=== PATIENT | female | born 1935 | race Caucasian/White ===

== ENCOUNTER 2016-04-24 08:26 | Outpatient (CLI) ==
--- NOTE | 2016-04-24 09:03 | DI ---
EXAM: CHEST FRONTAL AND LATERAL VIEWS HISTORY: Followup medial right basilar opacity. COMPARISON: 03/29/2016. FINDINGS: The oval shaped right-sided retrocardiac opacity is again noted, less distinct. This is not clearly identified on the lateral projection. Etiology and clinical significance uncertain. Mild hyperinflation. Lungs are otherwise unremarkable. Stable upper limit normal heart size and aortic atherosclerosis. IMPRESSION: Indeterminate right sided retrocardiac opacity. Consider correlation with CT.
== END 2016-04-24 08:27 | disposition home or self-care (01) ==
LOC: RAD 08:26
PROVIDERS: ATTEND General Practice
DX: R93.8 Abnormal findings on diagnostic imaging of other specified body structures (principal); E11.40 Type 2 diabetes mellitus with diabetic neuropathy, unspecified; E03.9 Hypothyroidism, unspecified; I10 Essential (primary) hypertension; N18.3 Chronic kidney disease, stage 3 (moderate)
CPT/HCPCS: 36415; 80069; 83036; 85025

== ENCOUNTER 2016-04-24 09:11 | Outpatient (CLI) ==
[2016-04-24 13:05] LABS: BASOPHILS % (AUTO) 0.5 % (0.0-3.0); EOSINOPHILS # (AUTO) 0.1 K/ul (0.0-0.7); EOSINOPHILS % (AUTO) 1.9 % (0.0-7.0); HEMATOCRIT 38.1 % (37.0-47.0); IMMATURE GRANULOCYTE % (AUTO) 0.5 % (0.0-5.0); MEAN CORPUSCULAR HEMOGLOBIN 30.8 pg (27.0-31.0); MEAN CORPUSCULAR HGB CONC 31.5 (31.8-35.4); MEAN CORPUSCULAR VOLUME 97.9 fl (81.0-99.0); MONOCYTES # (AUTO) 0.4 K/uL (0.4-2.0); MONOCYTES % (AUTO) 6.6 (0-10); NEUTROPHILS # (AUTO) 3.6 K/ul (2.0-6.9); NEUTROPHILS % (AUTO) 58.5; PLATELET COUNT 241 10^3/uL (140-440); RED BLOOD COUNT 3.89 10^6/ul (4.20-5.40); WHITE BLOOD COUNT 6.18 K/ul (4.6-10.2)
[2016-04-24 13:26] LABS: ALBUMIN 3.7 g/dL (3.4-5.0); ANION GAP 13.2; BUN/CREATININE RATIO 16.07; CALCIUM 9.8 mg/dL (8.2-10.2); CREATININE 1.12 mg/dL (0.60-1.30); PHOSPHORUS 4.1 mg/dL (2.8-4.1); POTASSIUM 4.2 mmol/L (3.5-5.10)
== END 2016-04-24 09:12 | disposition home or self-care (01) ==
LOC: LAB 09:11
PROVIDERS: ATTEND General Practice
DX: E11.40 Type 2 diabetes mellitus with diabetic neuropathy, unspecified (principal); E03.9 Hypothyroidism, unspecified; I10 Essential (primary) hypertension; N18.3 Chronic kidney disease, stage 3 (moderate)
CPT/HCPCS: 36415; 80069; 83036; 85025

== ENCOUNTER 2016-05-02 09:17 | Outpatient (CLI) ==
--- NOTE | 2016-05-02 10:06 | CT ---
EXAM: CT THORAX HISTORY: Abnormal chest radiograph suggesting abnormal mediastinal contour of the lower aspect. TECHNIQUE: CT thorax without intravenous contrast. 5-mm axial sections. Coronal and sagittal re-fo rmations. COMPARISON: None FINDINGS: Heart size is normal. Trace pericardial effusion. Mild atherosclerotic disease of the aorta. No a neurysmal caliber of the aorta is seen. No obvious mediastinal or hilar lymphadenopathy within limi ts of this unenhanced exam. There is diffuse air distension of the esophagus and a small para esoph ageal hernia. These latter findings likely represent the abnormal mediastinal contour seen on chest radiography. Lungs are mildly hyperinflated. There are thin discoid opacities in the lung bases which may repres ent a combination of fibrosis and atelectasis. Less likely pneumonia. Correlate clinically. No va scular congestion, pneumothorax or pleural fluid. Bones reveal age-related degenerative changes of the spine most apparent at the lumbar level. IMPRESSION: Diffuse dilatation of the esophagus with air. There is a small paraesophageal hernia. In part the hernia may be related to the esophageal dilatation although other considerations would include achalasia. These findings likely represent the abnormal mediastinal contour seen on chest r adiography. There is no dilatation of the aorta.
== END 2016-05-02 09:18 | disposition home or self-care (01) ==
LOC: RAD 09:17
PROVIDERS: ATTEND General Practice
DX: R93.8 Abnormal findings on diagnostic imaging of other specified body structures (principal)

== ENCOUNTER 2016-05-26 11:14 | Outpatient (CLI) ==
[2016-05-26 13:12] LABS: BILIRUBIN,URINE Negative (NEGATIVE); KETONES,URINE Negative (NEGATIVE); LEUKOCYTE ESTERASE ,URINE Negative (NEGATIVE); NITRITE,URINE Negative (NEGATIVE); PH,URINE 5.5 (5-9); PROTEIN,URINE Negative (NEGATIVE); URINE, BLOOD Trace-intact (NEGATIVE)
[2016-05-26 13:13] LABS: BASOPHILS # (AUTO) 0.1 K/uL (0-0.2); BASOPHILS % (AUTO) 0.7 % (0.0-3.0); EOSINOPHILS # (AUTO) 0.2 K/ul (0.0-0.7); EOSINOPHILS % (AUTO) 1.6 % (0.0-7.0); HEMATOCRIT 37.4 % (37.0-47.0); HEMOGLOBIN 12.2 g/dl (12.0-16.0); IMMATURE GRANULOCYTE % (AUTO) 1.7 % (0.0-5.0); LYMPHOCYTES # (AUTO) 2.2 K/uL (0.60-3.4); LYMPHOCYTES % (AUTO) 21.3 (10.0-50.0); MEAN CORPUSCULAR HGB CONC 32.6 (31.8-35.4); MEAN CORPUSCULAR VOLUME 95.2 fl (81.0-99.0); MONOCYTES # (AUTO) 0.6 K/uL (0.4-2.0); MONOCYTES % (AUTO) 5.8 (0-10); NEUTROPHILS # (AUTO) 7.1 K/ul (2.0-6.9); NEUTROPHILS % (AUTO) 68.9; PLATELET COUNT 280 10^3/uL (140-440); RED BLOOD COUNT 3.93 10^6/ul (4.20-5.40); WHITE BLOOD COUNT 10.32 K/ul (4.6-10.2)
[2016-05-26 13:34] LABS: ADD URINE MICROSCOPIC YES
[2016-05-26 13:37] LABS: ALBUMIN 3.5 g/dL (3.4-5.0); ALBUMIN/GLOBULIN RATIO 0.95; ANION GAP 14.2; BILIRUBIN,TOTAL 0.4 mg/dL (0.00-1.20); BUN/CREATININE RATIO 22.8; CALCIUM 9.7 mg/dL (8.2-10.2); CREATININE 1.14 mg/dL (0.60-1.30); POTASSIUM 4.2 mmol/L (3.5-5.10); TOTAL PROTEIN 7.2 g/dL (5.8-8.1)
[2016-05-26 13:39] LABS: BACTERIA,URINE TRACE (NOT PRESENT)
== END 2016-05-26 11:15 | disposition home or self-care (01) ==
LOC: LAB 11:14
PROVIDERS: ATTEND General Practice
DX: N18.3 Chronic kidney disease, stage 3 (moderate) (principal); M54.9 Dorsalgia, unspecified; J44.9 Chronic obstructive pulmonary disease, unspecified; I10 Essential (primary) hypertension; E11.40 Type 2 diabetes mellitus with diabetic neuropathy, unspecified; E03.9 Hypothyroidism, unspecified; E55.9 Vitamin D deficiency, unspecified; Z79.899 Other long term (current) drug therapy
CPT/HCPCS: 36415; 80053; 80061; 81001; 83036; 85025

== ENCOUNTER 2016-07-25 06:22 | Day surgery (SDC) | payer OTHER ==
[2016-07-25] MEDS ORDERED: LIDOCAINE 1% 20 ML MDV ONE (07:15)
[2016-07-25] MEDS ORDERED: LIDOCAINE 2% 2ML SDV ONE (07:15)
[2016-07-25] MEDS ORDERED: LIDOCAINE 1% 20 ML MDV SUBCUT ONE (07:15)
[2016-07-25] MEDS ORDERED: DIPRIVAN 20 ML VIAL IVP ONE (08:15)
[2016-07-25] MEDS ORDERED: VERSED ONE (08:15)
[2016-07-25] MEDS ORDERED: LIDOCAINE HCL 2% LUER-JET ONE (08:15)
[2016-07-25 10:27] VITALS: BP 133/64; TEMP 98.2
--- NOTE | 2016-07-25 14:09 | OP ---
INDICATIONS FOR PROCEDURE: The patient is a 81 year old female presents complaining dysphasia. She is having intermittent dysphasia to liquids and solids. She had an esophagram showing markedly dilated esophagus with tight GE junction consistent with achalasia. CT scan of the chest was unremarkable other than dilated esophagus. She is scheduled for endoscopy exam and she also scheduled for screening colonoscopy. MEDICATIONS: SEE ANESTHESIA NOTES. PROCEDURE: 1. ENDOSCOPY MALDIVIAN DILATION. 2. COLONOSCOPY REPORT: The risks, benefits, alternatives and limitations were discussed in detail with the patient. Informed consent was obtained. After adequate sedation was achieved, the video endoscope was introduced in the posterior pharynx and esophagus under direct vision and easily advanced down to the gastric lumen and then onto the second portion of the duodenum. I then slowly withdrew the scope in a circumferential manner and examined the mucosa quite carefully. The duodenum mucosa appeared unremarkable as did the duodenal bulb. The antrum and body were relatively unremarkable. The scope was retroflexed to look at the cardia and fundus which revealed a small to medium hiatal hernia. It was sliding. No other mucosa or abnormalities were noted. The scope was anteflexed and withdrawn back through the esophagus. The esophageal lumen was a little bit tortuous especially down distally. In the mid and proximal esophagus the lumen was markedly dilated. There were no mucosa abnormalities. There is tapering of the esophagus at the GE junction. I observed the GE junction and did see some motility present while observing but I did not see it relax completely. The scope would pass across the GE junction fairly easily. There was no retained fluids in the esophagus when I intubated the esophagus. The findings were consistent with achalasia. I elected to advance the scope back down the gastric lumen. I placed the guidewire and withdrew the scope. Over the guidewire I then past a 54 [place] dilator I did not meet any resistance. The patient tolerated the procedure well with stable vital signs and pulse oximetry throughout. The patient's bed was turned and a digital rectal exam revealed good tone and no masses. The colonic scope was introduced in the rectum and was advanced under directed visual guidance to the cecum, the cecum was identified by the appendiceal orifice and IC valve. I then slowly withdrew the scope in circumferential manner and examined the mucosa quite carefully. I looked on the proximal and distal sides of the folds and flexures the best as possible. The colonic mucosa is unremarkable in it's entire length including on retroflex view of the anal canal. The prep was adequate. The withdrawal time was 12 minutes and 49 seconds. The patient tolerated the procedure well with stable vital signs and pulse oximetry throughout. IMPRESSION: 1. Markedly dilated esophagus was tortuous distally 2. Small sliding hiatal hernia 3. Changes in the esophagus are quite consistent with underline achalasia 4. Normal colon examination RECOMMENDATIONS: 1. Discuss the option further in the office. I'll scheduled an appointment next week. 2. Strict reflux precautions 3. Future colonoscopies on an as needed only basis. CC. Dr. Jacob HULL
== END 2016-07-25 10:35 | disposition home or self-care (01) ==
LOC: SURG 06:22
PROVIDERS: ATTEND Internal Medicine Gastroenterology
DX: Z12.11 Encounter for screening for malignant neoplasm of colon (principal); R13.10 Dysphagia, unspecified; K22.0 Achalasia of cardia; K44.9 Diaphragmatic hernia without obstruction or gangrene
CPT/HCPCS: 00810; 43248; G0121

== ENCOUNTER 2016-08-14 16:25 | Outpatient (CLI) ==
[2016-08-14 16:58] LABS: BASOPHILS % (AUTO) 0.5 % (0.0-3.0); EOSINOPHILS # (AUTO) 0.1 K/ul (0.0-0.7); EOSINOPHILS % (AUTO) 2.2 % (0.0-7.0); HEMATOCRIT 34.3 % (37.0-47.0); HEMOGLOBIN 11.4 g/dl (12.0-16.0); IMMATURE GRANULOCYTE % (AUTO) 0.4 % (0.0-5.0); LYMPHOCYTES % (AUTO) 36.8 (10.0-50.0); MEAN CORPUSCULAR HEMOGLOBIN 31.8 pg (27.0-31.0); MEAN CORPUSCULAR HGB CONC 33.2 (31.8-35.4); MEAN CORPUSCULAR VOLUME 95.5 fl (81.0-99.0); MONOCYTES # (AUTO) 0.5 K/uL (0.4-2.0); MONOCYTES % (AUTO) 8.6 (0-10); NEUTROPHILS # (AUTO) 2.8 K/ul (2.0-6.9); NEUTROPHILS % (AUTO) 51.5; PLATELET COUNT 219 10^3/uL (140-440); RED BLOOD COUNT 3.59 10^6/ul (4.20-5.40); WHITE BLOOD COUNT 5.46 K/ul (4.6-10.2)
[2016-08-14 17:04] LABS: BILIRUBIN,URINE Negative (NEGATIVE); KETONES,URINE Negative (NEGATIVE); LEUKOCYTE ESTERASE ,URINE Negative (NEGATIVE); NITRITE,URINE Negative (NEGATIVE); PH,URINE 5.5 (5-9); PROTEIN,URINE Negative (NEGATIVE); URINE, BLOOD Negative (NEGATIVE)
[2016-08-14 17:09] LABS: ADD URINE MICROSCOPIC NO
[2016-08-14 17:45] LABS: ALBUMIN 3.6 g/dL (3.4-5.0); ALBUMIN/GLOBULIN RATIO 1.06; ANION GAP 13.2; BILIRUBIN,TOTAL 0.53 mg/dL (0.00-1.20); BUN/CREATININE RATIO 21.7; CALCIUM 9.4 mg/dL (8.2-10.2); CHOL/HDL RATIO 2.7 (4.5-5.5); CREATININE 1.29 mg/dL (0.60-1.30); POTASSIUM 4.2 mmol/L (3.5-5.10)
== END 2016-08-14 16:26 | disposition home or self-care (01) ==
LOC: LAB 16:25
PROVIDERS: ATTEND General Practice
DX: E03.9 Hypothyroidism, unspecified (principal); I10 Essential (primary) hypertension; J44.9 Chronic obstructive pulmonary disease, unspecified; E55.9 Vitamin D deficiency, unspecified; E11.9 Type 2 diabetes mellitus without complications; N18.3 Chronic kidney disease, stage 3 (moderate); Z79.899 Other long term (current) drug therapy
CPT/HCPCS: 36415; 80053; 80061; 81001; 83036; 84443; 85025

== ENCOUNTER 2016-11-14 12:07 | Outpatient (CLI) ==
[2016-11-14 13:21] LABS: BASOPHILS % (AUTO) 0.7 % (0.0-3.0); EOSINOPHILS # (AUTO) 0.1 K/ul (0.0-0.7); HEMATOCRIT 35.6 % (37.0-47.0); HEMOGLOBIN 11.9 g/dl (12.0-16.0); IMMATURE GRANULOCYTE % (AUTO) 0.2 % (0.0-5.0); LYMPHOCYTES # (AUTO) 2.1 K/uL (0.60-3.4); LYMPHOCYTES % (AUTO) 35.6 (10.0-50.0); MEAN CORPUSCULAR HEMOGLOBIN 32.3 pg (27.0-31.0); MEAN CORPUSCULAR HGB CONC 33.4 (31.8-35.4); MEAN CORPUSCULAR VOLUME 96.7 fl (81.0-99.0); MONOCYTES # (AUTO) 0.4 K/uL (0.4-2.0); MONOCYTES % (AUTO) 7.5 (0-10); NEUTROPHILS # (AUTO) 3.2 K/ul (2.0-6.9); PLATELET COUNT 214 10^3/uL (140-440); RED BLOOD COUNT 3.68 10^6/ul (4.20-5.40); WHITE BLOOD COUNT 5.87 K/ul (4.6-10.2)
[2016-11-14 13:27] LABS: BILIRUBIN,URINE Negative (NEGATIVE); KETONES,URINE Negative (NEGATIVE); LEUKOCYTE ESTERASE ,URINE Trace (NEGATIVE); NITRITE,URINE Negative (NEGATIVE); PH,URINE 6.5 (5-9); PROTEIN,URINE Negative (NEGATIVE); URINE, BLOOD Negative (NEGATIVE)
[2016-11-14 13:29] LABS: ADD URINE MICROSCOPIC YES
[2016-11-14 13:37] LABS: ALBUMIN 3.6 g/dL (3.4-5.0); ALBUMIN/GLOBULIN RATIO 1.03; ANION GAP 16.1; BILIRUBIN,TOTAL 0.38 mg/dL (0.00-1.20); BUN/CREATININE RATIO 23.27; CALCIUM 9.6 mg/dL (8.2-10.2); CHOL/HDL RATIO 3.9 (4.5-5.5); CREATININE 1.16 mg/dL (0.60-1.30); POTASSIUM 4.1 mmol/L (3.5-5.10); TOTAL PROTEIN 7.1 g/dL (5.8-8.1)
== END 2016-11-14 12:08 | disposition home or self-care (01) ==
LOC: LAB 12:07
PROVIDERS: ATTEND General Practice
DX: E03.9 Hypothyroidism, unspecified (principal); E11.40 Type 2 diabetes mellitus with diabetic neuropathy, unspecified; E11.9 Type 2 diabetes mellitus without complications; I10 Essential (primary) hypertension; N18.3 Chronic kidney disease, stage 3 (moderate); J44.9 Chronic obstructive pulmonary disease, unspecified; Z79.899 Other long term (current) drug therapy
CPT/HCPCS: 36415; 80053; 80061; 81001; 83036; 83519; 85025

== ENCOUNTER 2016-12-12 10:01 | Outpatient (CLI) | payer OTHER ==
--- NOTE | 2016-12-12 11:24 | US ---
EXAM: Thyroid ultrasound History: Follow-up thyroid nodules. Comparison: None available. Findings: Right lobe of the thyroid measures 3.3 cm x 1.5 cm x 1.2 cm and demonstrates heterogeneous echotextu re. 0.7 cm complex nodule. The thyroid isthmus measures 0.3 cm in thickness. The left lobe of the thyroid measures 2.9 cm x 1.3 cm x 1.2 cm and is without discrete nodule identi fied. No extrathyroidal masses are identified. The thyroid gland is not hypervascular. Impression: Heterogeneous thyroid gland with a 0.7 cm complex nodule in the right thyroid lobe.
== END 2016-12-12 10:02 | disposition home or self-care (01) ==
LOC: RAD 10:01
PROVIDERS: ATTEND Otolaryngology
DX: E04.1 Nontoxic single thyroid nodule (principal)

== ENCOUNTER 2017-03-16 13:09 | Outpatient (CLI) ==
[2017-03-16 13:26] LABS: BASOPHILS % (AUTO) 0.9 % (0.0-3.0); EOSINOPHILS # (AUTO) 0.2 K/ul (0.0-0.7); EOSINOPHILS % (AUTO) 3.4 % (0.0-7.0); HEMATOCRIT 33.4 % (37.0-47.0); IMMATURE GRANULOCYTE % (AUTO) 0.2 % (0.0-5.0); LYMPHOCYTES # (AUTO) 1.8 K/uL (0.60-3.4); LYMPHOCYTES % (AUTO) 38.5 (10.0-50.0); MEAN CORPUSCULAR HEMOGLOBIN 31.7 pg (27.0-31.0); MEAN CORPUSCULAR HGB CONC 32.9 (31.8-35.4); MEAN CORPUSCULAR VOLUME 96.3 fl (81.0-99.0); MONOCYTES # (AUTO) 0.4 K/uL (0.4-2.0); MONOCYTES % (AUTO) 8.4 (0-10); NEUTROPHILS # (AUTO) 2.3 K/ul (2.0-6.9); NEUTROPHILS % (AUTO) 48.6; PLATELET COUNT 204 10^3/uL (140-440); RED BLOOD COUNT 3.47 10^6/ul (4.20-5.40); WHITE BLOOD COUNT 4.67 K/ul (4.6-10.2)
[2017-03-16 13:33] LABS: ADD URINE MICROSCOPIC YES; BILIRUBIN,URINE Negative (NEGATIVE); KETONES,URINE Negative (NEGATIVE); LEUKOCYTE ESTERASE ,URINE 1+ (NEGATIVE); NITRITE,URINE Negative (NEGATIVE); PH,URINE 5.5 (5-9); PROTEIN,URINE Negative (NEGATIVE); URINE, BLOOD Negative (NEGATIVE)
[2017-03-16 13:40] LABS: ALBUMIN 3.4 g/dL (3.4-5.0); ALBUMIN/GLOBULIN RATIO 0.92; ANION GAP 13.3; BILIRUBIN,TOTAL 0.35 mg/dL (0.00-1.20); BUN/CREATININE RATIO 22.52; CALCIUM 9.6 mg/dL (8.2-10.2); CHOL/HDL RATIO 4.5 (4.5-5.5); CREATININE 1.11 mg/dL (0.60-1.30); POTASSIUM 4.3 mmol/L (3.5-5.10); TOTAL PROTEIN 7.1 g/dL (5.8-8.1)
== END 2017-03-16 13:10 | disposition home or self-care (01) ==
LOC: LAB 13:09
PROVIDERS: ATTEND General Practice
DX: I10 Essential (primary) hypertension (principal); E11.9 Type 2 diabetes mellitus without complications; Z79.899 Other long term (current) drug therapy
CPT/HCPCS: 36415; 80053; 80061; 81001; 83036; 85025

== ENCOUNTER 2017-06-28 13:21 | Outpatient (POV) | payer OTHER | END 2017-06-28 13:22 | disposition home or self-care (01) | LOC: CANPREPOV → LAB 13:21 | PROVIDERS: ATTEND General Practice | DX: X50.1XXA Overexertion from prolonged static or awkward postures, initial encounter (principal) ==

== ENCOUNTER 2017-07-12 13:09 | Outpatient (CLI) | payer OTHER | END 2017-07-12 13:10 | disposition home or self-care (01) | LOC: FCC-LAB 13:09 | PROVIDERS: ATTEND General Practice | DX: E03.9 Hypothyroidism, unspecified (principal); E11.9 Type 2 diabetes mellitus without complications; E55.9 Vitamin D deficiency, unspecified; G62.9 Polyneuropathy, unspecified; I10 Essential (primary) hypertension; J44.9 Chronic obstructive pulmonary disease, unspecified; N18.3 Chronic kidney disease, stage 3 (moderate); Z79.899 Other long term (current) drug therapy | CPT/HCPCS: 36415; 80053; 80061; 81001; 83036; 85025; 87086 ==

== ENCOUNTER 2018-01-31 10:41 | Outpatient (CLI) | END 2018-01-31 10:42 | disposition home or self-care (01) | LOC: FCC-LAB 10:41 | PROVIDERS: ATTEND General Practice | DX: E03.9 Hypothyroidism, unspecified (principal); I10 Essential (primary) hypertension; N18.3 Chronic kidney disease, stage 3 (moderate); J44.9 Chronic obstructive pulmonary disease, unspecified; E55.9 Vitamin D deficiency, unspecified; E11.9 Type 2 diabetes mellitus without complications; E11.40 Type 2 diabetes mellitus with diabetic neuropathy, unspecified; Z79.899 Other long term (current) drug therapy | CPT/HCPCS: 36415; 80053; 80061; 81001; 83036; 84443; 85025 ==

== ENCOUNTER 2018-08-09 10:34 | Outpatient (CLI) | END 2018-08-09 10:35 | disposition home or self-care (01) | LOC: LAB 10:34 | PROVIDERS: ATTEND General Practice | DX: J44.9 Chronic obstructive pulmonary disease, unspecified (principal); I10 Essential (primary) hypertension; E03.9 Hypothyroidism, unspecified; Z79.899 Other long term (current) drug therapy | CPT/HCPCS: 36415; 80053; 80061; 81001; 83036; 85025; 87086; 87186 ==